=== PATIENT | female | born 1945 | race Caucasian/White ===

== ENCOUNTER 2022-07-12 22:38 | Emergency (ER) | payer MEDICARE ==
[2022-07-12] MEDS ORDERED: SODIUM CHLORIDE 0.9% 1000 ML 1,000 ML IV ONE (22:54)
--- NOTE | 2022-07-12 22:54 | Emergency Department Report ---
ED General Adult HPI - General Stated complaint: FEVER Time Seen by Provider: 07/12/22 22:51 - History of Present Illness Initial comments: Patient is a 77-year-old female with history of hypertension brought in by EMS from home after family noticed that she was not acting right and appeared pale. EMS arrived and noted patient was extremely warm to touch. She was mildly tachycardic as well. Complains of body aches and sore throat. She denies any c hest pain or previous cardiac history. - Related Data Home Medications Medication Instructions Recorded Confirmed Last Taken Multivitamin [Multi Vitamin Daily] 1 each PO DAILY 09/11/14 01/15/15 01/14/15 Previous Rx's Medication Instructions Recorded Last Taken Type Ferrous Sulfate [Feosol 325 MG tab] 325 mg PO BID #60 tablet 09/27/14 01/14/15 Rx Levothyroxine [Synthroid] 75 mcg PO QAM #30 tablet 09/27/14 01/14/15 Rx hydrOXYzine HCL [Atarax] 10 mg PO Q6HR PRN #30 tablet 09/27/14 Unknown Rx Allergies Allergy/AdvReac Type Severity Reaction Status Date / Time No Known Allergies Allergy Unverified 09/11/14 12:53 ED Review of Systems ROS: Stated complaint: FEVER Other details as noted in HPI Constitutional: malaise, weakness Respiratory: denies: cough, shortness of breath, wheezing Cardiovascular: denies: chest pain, palpitations Gastrointestinal: denies: abdominal pain, nausea, diarrhea Musculoskeletal: denies: back pain, joint swelling, arthralgia Skin: change in color Neurological: denies: headache, weakness, paresthesias Psychiatric: denies: anxiety, depression ED Past Medical Hx - Past Medical History Hx GERD: Yes (USES OTC MED ) Hx Renal Disease: No Hx Arthritis: Yes Hx Seizures: No - Surgical History Hx Cholecystectomy: Yes Hx Appendectomy: Yes (2006) - Social History Smoking Status: Never Smoker - Medications Home Medications: Home Medications Medication Instructions Recorded Confirmed Last Taken Type Multivitamin [Multi Vitamin Daily] 1 each PO DAILY 09/11/14 01/15/15 01/14/15 History Ferrous Sulfate [Feosol 325 MG tab] 325 mg PO BID #60 tablet 09/27/14 01/15/15 01/14/15 Rx Levothyroxine [Synthroid] 75 mcg PO QAM #30 tablet 09/27/14 01/15/15 01/14/15 Rx hydrOXYzine HCL [Atarax] 10 mg PO Q6HR PRN #30 tablet 09/27/14 01/15/15 Unknown Rx ED Physical Exam - General General appearance: alert, in no apparent distress - Head Head exam: Present: atraumatic, normocephalic - Respiratory Respiratory exam: Present: normal lung sounds bilaterally. Absent: respiratory distress - Cardiovascular Cardiovascular Exam: Present: regular rate, normal rhythm, normal heart sounds - GI/Abdominal GI/Abdominal exam: Present: soft. Absent: distended, tenderness - Rectal Rectal exam: Present: deferred - Extremities Exam Extremities exam: Absent: tenderness, pedal edema - Neurological Exam Neurological exam: Present: alert, oriented X3 - Psychiatric Psychiatric exam: Present: normal affect, normal mood - Skin Skin exam: Present: warm, dry, intact, normal color ED Course Vital Signs 07/12/22 07/12/22 07/12/22 22:39 23:32 23:45 Temperature 101.3 F H Pulse Rate 74 91 H 93 H Respiratory 18 19 22 Rate Blood Pressure 154/104 171/61 O2 Sat by Pulse 95 97 96 Oximetry ED Medical Decision Making - Lab Data Result diagrams: 07/12/22 23:28 07/12/22 23:28 - Medical Decision Making Mild leukocytosis present. Remainder of CBC, CMP, UA and rapid strep unremarkable. Chest x-ray is unremarkable. COVID test pending. On reassessment fever is resolved. Patient stable for discharge home with return precautions. Critical care attestation.: If time is entered above; I have spent that time in minutes in the direct care of this critically ill patient, excluding procedure time. ED Disposition Clinical Impression: Fever of unknown origin, Viral syndrome Disposition: HOME / SELF CARE / HOMELESS Is pt being admited?: No Condition: Stable Instructions: Viral Illness, Adult Additional Instructions: Please follow-up with your regular doctor as needed. We will contact you if your COVID results come back positive. Referrals: PRIMARY CARE, [Primary Care Provider] - 3-5 Days
--- NOTE | 2022-07-12 23:18 | XRay Report ---
CHEST 1 VIEW 07/12/2022 11:01 PM INDICATION / CLINICAL INFORMATION: Abdominal Pain. COMPARISON: None available. FINDINGS: SUPPORT DEVICES: None. HEART / MEDIASTINUM: No significant abnormality. LUNGS / PLEURA: No significant pulmonary or pleural abnormality. No pneumothorax. ADDITIONAL FINDINGS: No significant additional findings. IMPRESSION: 1. No acute findings. Signer Name: Kyree Licona MD Signed: 07/12/2022 11:14 PM Workstation Name: [id number]
[2022-07-13 00:19] LABS: Basophils # (Auto) 0.1 K/mm3 (0.0-0.1); Basophils % (Auto) 0.9 % (0.0-1.8); Eosinophils % (Auto) 0.3 % (0.0-4.3); Hematocrit 34.5 % (30.3-42.9); Hemoglobin 11.5 gm/dl (10.1-14.3); Lymphocytes # (Auto) 1.3 K/mm3 (1.2-5.4); Lymphocytes % (Auto) 10.4 % (13.4-35.0); Mean Corpuscular HGB Conc 33 % (30-34); Mean Corpuscular Volume 83 fl (79-97); Monocytes # (Auto) 0.7 K/mm3 (0.0-0.8); Monocytes % (Auto) 5.7 % (0.0-7.3); Red Blood Count 4.15 M/mm3 (3.65-5.03); Red Cell Distribution Width 13.8 % (13.2-15.2)
[2022-07-13 00:24] LABS: Platelet Count 183 K/mm3 (140-440)
[2022-07-13 00:42] LABS: Alanine Aminotransferase 12 units/L (7-56); Albumin 4.1 g/dL (3.9-5); BUN/Creatinine Ratio 30; Bilirubin,Direct < 0.2 mg/dL (0-0.2); Blood Urea Nitrogen 18 mg/dL (7-17); Calcium 8.8 mg/dL (8.4-10.2); Hemolysis Index 41
[2022-07-13 02:16] LABS: Bacteria,Urine 1+ /HPF (Negative)
[2022-07-13 02:27] LABS: Bilirubin,Urine Negative (Negative); Blood,Urine Negative (Negative); Color,Urine Yellow (Yellow); PH,Urine 7.5 (5.0-7.0); Protein,Urine <15 mg/dL mg/dL (Negative); Urobilinogen,Urine < 2.0 mg/dL (<2.0)
[2022-07-13] MEDS ORDERED: ACETAMINOPHEN 325 MG TAB PO ONE (03:12)
[2022-07-13 06:59] VITALS: BP 140/62
--- NOTE | 2022-07-13 12:49 | Electrocardiograph Report ---
[facility] Test Date: 2022-07-12 Test Time: 23:19:30 Pat Name: VENICE MIRANDA Department: Room: Gender: F [employer] Operator: RUSSEL : 1945 Requested By: RADHA MENDIOLA Order Number: [id number] Reading MD: Pual Noonan Measurements Intervals [place] Rate: 91 P: 41 WI: 138 QRS: -11 QRSD: 82 T: 62 QT: 356 QTc: 440 Interpretive Statements Sinus rhythm Low voltage, precordial leads No previous ECG available for comparison Electronically Signed On 07-13-2022 12:49:11 EDT by Paul Noonan
== END 2022-07-13 06:00 | disposition home or self-care (01) ==
LOC: ED 22:38
DX: B34.9 Viral infection, unspecified (principal); R50.9 Fever, unspecified; K21.9 Gastro-esophageal reflux disease without esophagitis; M19.90 Unspecified osteoarthritis, unspecified site; Z90.49 Acquired absence of other specified parts of digestive tract; Z20.822 Contact with and (suspected) exposure to COVID-19
CPT/HCPCS: 36415; 71045; 80048; 80076; 81001; 85025; 87116; 87430; 93005; 96360; 99284; J7030; U0003